=== PATIENT | male | born 1935 | race Caucasian/White ===

== ENCOUNTER 2016-12-21 15:45 | Emergency (ER) | payer MEDICARE, OTHER ==
[~2016-12-21 15:45] MED LIST: ALTACE10 MG PO; ASAB PO; GLUCPH PO; ZOCOR40 PO
== END 2016-12-21 18:54 | disposition home or self-care (01) ==
LOC: ER 15:45
DX: S49.92XA Unspecified injury of left shoulder and upper arm, initial encounter (principal); I10 Essential (primary) hypertension; E11.9 Type 2 diabetes mellitus without complications; Z91.018 Allergy to other foods; Z79.82 Long term (current) use of aspirin; X58.XXXA Exposure to other specified factors, initial encounter
CPT/HCPCS: 73030-LT; 99283